=== PATIENT | female | born 1985 | race African-American/Black ===

== ENCOUNTER → 2016-08-08 | Outpatient (REF) | payer BC, MEDICAID ==
[~2016-08-08] MED LIST: ANUS2.5C2 TOP; CIPR500T3 PO; COLA100C PO; IBUP200T2 PO; MOM30SS PO; MOTR200T44 PO; TYLE167L PO
[2016-08-08 13:20] LABS: BASO % 0.4 % (0.0-1.0); EOS # 0.2 K/mm3 (0.0-0.50); EOS % 3.3 % (0.0-3.0); LARGE UNSTAINED CELL # 0.1 K/mm3 (0.0-0.4); LARGE UNSTAINED CELL % 1.7 % (0.0-4.0); LYMPH # 1.7 K/mm3 (1.5-4.5); LYMPH % 21.3 % (24.0-44.0); MEAN CORPUSCULAR HEMOGLOBIN 29.8 pg (27.0-33.0); MEAN CORPUSCULAR HGB CONC 33.3 g/dl (32.0-36.5); MEAN CORPUSCULAR VOLUME 89.5 fl (80.0-96.0); MONO # 0.4 K/mm3 (0.0-0.8); MONO % 5.2 % (0.0-5.0); NEUTROPHILS % 68.2 % (36.0-66.0); PLATELET COUNT, AUTOMATED 279 k/mm3 (150-450); WHITE BLOOD COUNT 7.3 K/mm3 (4.0-10.0)
[2016-08-08 13:45] LABS: ALBUMIN 3.8 GM/DL (3.2-5.2); ALBUMIN/GLOBULIN RATIO 1.06 (1.00-1.93); ALKALINE PHOSPHATASE 60 U/L (45-117); ALT/SGPT 21 U/L (12-78); ANION GAP 8 MEQ/L (8-16); AST/SGOT 15 U/L (15-37); BILIRUBIN,TOTAL 0.5 MG/DL (0.2-1.0); BLOOD UREA NITROGEN 7 MG/DL (7-18); CALCIUM LEVEL 9.2 MG/DL (8.5-10.1); CARBON DIOXIDE LEVEL 25 MEQ/L (21-32); CHLORIDE LEVEL 104 MEQ/L (98-107); CREATININE FOR GFR 0.63 MG/DL (0.55-1.02); FREE T4 0.98 NG/DL (0.76-1.46); GLOMERULAR FILTRATION RATE > 60.0 (>60); GLUCOSE, FASTING 180 MG/DL (70-105); HCG, SERUM QUANTITATIVE 43482 MIU/ML; POTASSIUM SERUM 4.2 MEQ/L (3.5-5.1); SODIUM LEVEL 137 MEQ/L (136-145); TOTAL PROTEIN 7.4 GM/DL (6.4-8.2)
[2016-08-09 11:06] LABS: HBsAg Prenatal NEGATIVE (NEGATIVE)
[2016-08-09 13:57] LABS: HIV SCRN NEGATIVE (NEGATIVE); HIV SCRN1 NEGATIVE (NEGATIVE)
[2016-08-09 13:58] LABS: CONTROL LINE INT CTR LINE PRESENT
== END ==
LOC: M LAB REF 12:21
PROVIDERS: ATTEND Obstetrics & Gynecology
DX: O36.80X0 Pregnancy with inconclusive fetal viability, not applicable or unspecified (principal)

== ENCOUNTER 2016-12-12 23:32 | Outpatient (CLI) | payer MEDICAID, OTHER ==
[~2016-12-12 23:32] MED LIST changes: -COLA100C PO; +COLA100C5 PO
[2016-12-12 23:51] VITALS: BP 122/57
[2016-12-13] MEDS ORDERED: GLYB5TA PO (00:16)
[2016-12-13] MEDS ORDERED: PRENTAB9 PO (00:16)
--- NOTE | 2016-12-23 19:45 | IPNPDOC ---
Text Note Date of Service The patient was seen on 12/13/16. NOTE Subjective: Patient is a who is a 27 year-old female at 27 weeks gestation with an ISADORA of 03/14/17 based off of her LMP and consistent with her 1st trimester ultrasound. She initiated her care at [facility]. Her has been complicated by prediabetes, which she has bee taking Glyberide PO BID to manage. Patient presents to L&D with complaints of contractions. She reports that she gets contractions/pedro sheehan every night after work but tonight they stayed consistent and haven't gone away like they normally do. Patient also reports low dull back pain with contractions and slight pressure. She reports contractions that were every 3 minutes but reports they have decreased in frequency. Reports that the pressure and back pain occur infrequently. Reports active movement. Denies leaking of fluid or vaginal bleeding. Objective: VS: see below Urine dip: SG-1.005, pH 5, and everything else is negative. FHR: 140, moderate variability, positive accelerations, no decelerations. Contractions every 11-17 minutes. Abdomen: gravid Pelvic: speculum exam done. Cervix closed and thick. Normal physiologic discharge noted. Extremities: generalized edema bilateral lower feet and legs. Assessment: IUP at 26 weeks gestation, occasional contractions, not in labor. Plan: Patient to be discharged home with friend. Extensive education done on labor s/sx. Reviewed access to care, movement, danger signs. Patient encouraged to continue to take her blood sugars and to bring them to her routine appointments. Follow up with routine OB care. VS,Fidelbone, I+O VS, Fishbone, I+O Vital Signs Date Time Temp Pulse Resp B/P (MAP) Pulse Ox O2 Delivery O2 Flow Rate FiO2 12/12/16 23:51 98.0 103 18 122/57 (78) LAURA CALZADA CNM Dec 13, 2016 02:44
== END 2016-12-13 01:31 | disposition home or self-care (01) ==
LOC: M LDO 23:32
PROVIDERS: ATTEND Advanced Practice Midwife
DX: O47.02 False labor before 37 completed weeks of gestation, second trimester (principal); Z3A.27 27 weeks gestation of pregnancy; O99.282 Endocrine, nutritional and metabolic diseases complicating pregnancy, second trimester; Z88.1 Allergy status to other antibiotic agents; Z79.899 Other long term (current) drug therapy; O99.810 Abnormal glucose complicating pregnancy

== ENCOUNTER → 2017-01-07 | Outpatient (REF) | payer OTHER ==
[~2017-01-07] MED LIST changes: +GLYB5TA PO; +PRENTAB9 PO
== END ==
LOC: M LAB REF 12:58
PROVIDERS: ATTEND Advanced Practice Midwife
DX: O24.113 Pre-existing type 2 diabetes mellitus, in pregnancy, third trimester (principal)

== ENCOUNTER → 2017-02-18 | Outpatient (REF) | payer OTHER | LOC: M LAB REF 12:34 | PROVIDERS: ATTEND Obstetrics & Gynecology | DX: O09.893 Supervision of other high risk pregnancies, third trimester (principal); Z3A.36 36 weeks gestation of pregnancy ==

== ENCOUNTER 2017-03-08 03:26 | Inpatient (IN) | payer OTHER ==
[2017-03-08] VITALS (24 sets, daily range): BP systolic 98–164; BP diastolic 50–98
[~2017-03-08] VITALS: Ht 170.2 cm; Wt 112.0 kg
[2017-03-08] MEDS ORDERED: LR 1,000 ML IV SCH (03:47)
[2017-03-08] MEDS ORDERED: AMPICILLIN SOD 2 GM in D5W MINI-BAG PLUS 100 ML IV STA (03:47)
[2017-03-08] MEDS ORDERED: LACTATED RINGER'S 1000 ML IV STA (03:47)
[2017-03-08 04:32] LABS: MEAN CORPUSCULAR HEMOGLOBIN 28.2 pg (27.0-33.0); MEAN CORPUSCULAR HGB CONC 32.7 g/dl (32.0-36.5); MEAN CORPUSCULAR VOLUME 86.2 fl (80.0-96.0); RED CELL DISTRIBUTION WIDTH 14.7 % (11.5-14.5)
[2017-03-08] MEDS ORDERED: FENTANYL 2MCG/ML ROPIVACAINE 0.2% IN 0.9% NACL 200ML IVBAG As Ordered ONE (05:00)
[2017-03-08] MEDS ORDERED: OXYTOCIN 30 UNITS IN 0.9% NaCl 500ML IV BAG (J2590) As Ordered ONE (07:20)
[2017-03-08] MEDS ORDERED: OXYTOCIN DRIP 30 UNITS in APPROPRIATE DILUENT 1 EA IV SCH ×2 (07:30→07:53)
[2017-03-08] MEDS ORDERED: RHOGAM 300 MCG (1500 IU) INJ (J2790) IM SCH (08:00)
[2017-03-08] MEDS ORDERED: MEASLES,MUMPS,RUBELLA VACCINE INJ (MMR-II) (90707) SC SCH (08:00)
[2017-03-08] MEDS ORDERED: ACETAMINOPHEN 500 MG TAB PO PRN (08:00)
[2017-03-08] MEDS ORDERED: DOCUSATE SODIUM 100 MG CAP PO PRN (08:00)
[2017-03-08] MEDS ORDERED: METHYLERGONOVINE MALEATE 0.2 MG TAB PO PRN (08:00)
[2017-03-08] MEDS ORDERED: DIBUCAINE 1% OINTMENT 30GM TOP PRN (08:00)
[2017-03-08] MEDS ORDERED: ANUSOL HC CREAM 30GM TOP PRN (08:00)
[2017-03-08] MEDS ORDERED: IBUPROFEN 800 MG TAB PO PRN (08:00)
[2017-03-08 08:10] LABS: CORD GAS ABE V -4.7; CORD GAS HCO3 V 21.6 MEQ/L; CORD GAS O2 SAT V 50.5 %; CORD GAS PH V 7.309 UNITS; CORD GAS PO2 V 21.7 mmHg; CORD GAS SBC V 19.4 MEQ/L
--- NOTE | 2017-03-08 08:11 | HPE ---
DATE OF ADMISSION: 03/08/2017 Britney is a 31-year-old female, 7, para 3-0-3-3 with an estimated date of confinement (EDC) of 03/14/2017. Estimated gestational age (EGA) 38-6/7 weeks' gestation, who presented to labor and delivery with complaints of contractions. Upon evaluation, she was found to be in active labor. Decision was then made for admission. She does have a history of diabetes, currently on glyburide. Her last ultrasound was done a few days ago; shows an estimated weight of 9 pounds 1 ounce. The baby is in the 94th percentile for weight. Her amniotic fluid index (PRANEETH) was 23.4. The rest of her records reviewed, which was essentially unremarkable. Blood type is O+, rubella immune, hepatitis negative, HIV negative, gonorrhea culture (GC) and chlamydia negative. Her thyroid was within normal limits. Hepatitis C negative. Group B streptococcus (GBS) positive. Hemoglobin A1c was 7.9. Her last repeated one was done on 01/07/2017, which was 6.5. PAST MEDICAL HISTORY: Significant for diabetes. PAST SURGICAL HISTORY: Denies. SOCIAL HISTORY: She is . Denies any alcohol, drugs, or cigarette smoking. However, she is a former smoker. MEDICATIONS: - vitamin - glyburide ALLERGIES: To CIPRO. PHYSICAL EXAMINATION: HEENT: Grossly within normal limits. Abdomen: Soft, nontender, nondistended. Vaginal examination done by registered nurse (RN): 7 cm, 100%, fetus at -3 station. Tracing reviewed. Category one tracing with contractions every 4-5 minutes. ASSESSMENT: 1. Intrauterine at 38-6/7 weeks' gestation, in active labor. 2. Group B streptococcus positive. 3. Type 2 diabetes, on glyburide. PLAN: Admit to labor and delivery. Routine laboratories sent. Pain management discussed. The patient opts for an epidural. Ampicillin started for GBS. Risks of possible shoulder dystocia discussed, especially in light of the diabetes and the fact that the estimated weight as of 03/05/2017 was 9 pounds 1 ounce. The patient fully understands. Will proceed with attempted vaginal delivery. [facility]
[2017-03-08 08:12] LABS: CORD GAS HCO3 A 24.3 MEQ/L; CORD GAS O2 SAT A 15.3 %; CORD GAS PCO2 A 62.6 mmHg; CORD GAS PH A 7.206 UNITS; CORD GAS PO2 A 10.6 mmHg; CORD GAS SBC A 18.4 MEQ/L; CORD GAS TCO2 A 26.2 MEQ/L
[2017-03-08] MEDS ORDERED: AMPICILLIN SOD 1 GM in D5W 50 ML IV SCH (08:30)
--- NOTE | 2017-03-08 08:31 | DN ---
DATE OF DELIVERY: 03/08/2017 Britney is a 31-year-old female, 7, para 3-0-3-3, who was admitted at 39+ weeks' gestation in active labor. She progressed to fully dilated after artificial rupture of membranes and delivered a live male in left occipitoanterior position over an intact perineum. scores 8 and 9. weight 9 pounds 14 ounces. Placenta delivered spontaneously intact. Three-vessel cord. Perineum, vagina, cervix inspected. No laceration noted. Cord blood and cord gas were sent. Both mother and baby in stable condition.
[2017-03-08] MEDS: PRENATAL VITAMINS CHEWABLE TABLET PO SCH (09:00)
[2017-03-09 05:20] VITALS: BP 113/80
[2017-03-09 06:52] LABS: MEAN CORPUSCULAR HEMOGLOBIN 27.8 pg (27.0-33.0); MEAN CORPUSCULAR HGB CONC 32.1 g/dl (32.0-36.5); MEAN CORPUSCULAR VOLUME 86.5 fl (80.0-96.0); RED CELL DISTRIBUTION WIDTH 14.7 % (11.5-14.5); WHITE BLOOD COUNT 10.2 10^3/uL (4.0-10.0)
[2017-03-09 07:16] LABS: ANION GAP 6 MEQ/L (8-16); BLOOD UREA NITROGEN 6 MG/DL (7-18); CALCIUM LEVEL 8.6 MG/DL (8.5-10.1); CARBON DIOXIDE LEVEL 27 MEQ/L (21-32); CHLORIDE LEVEL 105 MEQ/L (98-107); GLOMERULAR FILTRATION RATE > 60.0 (>60); GLUCOSE, FASTING 116 MG/DL (70-105); POTASSIUM SERUM 3.8 MEQ/L (3.5-5.1); SODIUM LEVEL 138 MEQ/L (136-145)
[2017-03-09] MEDS: PRENATAL VITAMINS CHEWABLE TABLET PO SCH (08:46)
[2017-03-09 18:00] VITALS: BP 120/72
[2017-03-10 05:56] VITALS: BP 116/66
[2017-03-10] MEDS: PRENATAL VITAMINS CHEWABLE TABLET PO SCH (09:59)
== END 2017-03-10 16:05 | disposition home or self-care (01) | DRG 560 ==
LOC: M LDO 03:26 → M LDI 03:42 → M OBS 11:20
PROVIDERS: ADMIT Obstetrics & Gynecology; ATTEND Obstetrics & Gynecology
PROC: 10E0XZZ Delivery of Products of Conception, External Approach (ICD-10-PCS; principal; 2017-03-08)
PROC: 10907ZC Drainage of Amniotic Fluid, Therapeutic from Products of Conception, Via Natural or Artificial Opening (ICD-10-PCS; 2017-03-08)
DX: O24.12 Pre-existing type 2 diabetes mellitus, in childbirth (principal); Z37.0 Single live birth; Z3A.38 38 weeks gestation of pregnancy; E11.9 Type 2 diabetes mellitus without complications; O69.82X0 Labor and delivery complicated by other cord entanglement, without compression, not applicable or unspecified; Z88.8 Allergy status to other drugs, medicaments and biological substances; Z87.891 Personal history of nicotine dependence

== ENCOUNTER 2018-10-31 10:13 | Emergency (ER) | payer OTHER ==
[~2018-10-31] VITALS: Ht 170.2 cm; Wt 110.0 kg
[2018-10-31 10:14] VITALS: BP 133/78
[2018-10-31] MEDS ORDERED: CLAR10CA3 PO (11:03)
--- NOTE | 2018-10-31 11:07 | REP ---
Clinical: Trauma. Technique: AP, lateral, bilateral oblique views of the right foot. Findings: There is a nondisplaced fracture involving the third toe proximal phalanx. Remainder examination is normal. Impression: Nondisplaced fracture involving the third toe proximal phalanx. Electronically Signed by Ralph Ngo MD 10/31/2018 10:58 A
== END 2018-10-31 11:22 | disposition home or self-care (01) ==
LOC: M ED 10:13
DX: S92.514A Nondisplaced fracture of proximal phalanx of right lesser toe(s), initial encounter for closed fracture (principal); S39.012A Strain of muscle, fascia and tendon of lower back, initial encounter; W19.XXXA Unspecified fall, initial encounter; Y92.098 Other place in other non-institutional residence as the place of occurrence of the external cause; E11.43 Type 2 diabetes mellitus with diabetic autonomic (poly)neuropathy; R51 Headache; Z88.1 Allergy status to other antibiotic agents; Z79.899 Other long term (current) drug therapy

== ENCOUNTER 2019-01-07 10:46 | Emergency (ER) | payer OTHER ==
[~2019-01-07] VITALS: Ht 170.2 cm; Wt 107.0 kg
[~2019-01-07 10:46] MED LIST changes: +CLAR10CA3 PO
[2019-01-07 10:47] VITALS: BP 128/63
[2019-01-07] MEDS ORDERED: NAPR-837 PO (11:16)
[2019-01-07] MEDS ORDERED: CYCL10TA PO (11:16)
== END 2019-01-07 11:30 | disposition home or self-care (01) ==
LOC: M ED 10:46
DX: M43.6 Torticollis (principal); J30.89 Other allergic rhinitis; Z79.899 Other long term (current) drug therapy; Z88.1 Allergy status to other antibiotic agents

== ENCOUNTER 2021-03-15 11:28 | Outpatient (CLI) | payer OTHER ==
[~2021-03-15] VITALS: Ht 170.2 cm; Wt 109.0 kg
[~2021-03-15 11:28] MED LIST changes: +CYCL-707 PO; -GLYB5TA PO; +GLYB5TAB6 PO; +NAPR-837 PO
[2021-03-15 11:54] VITALS: BP 143/89
[2021-03-15] MEDS ORDERED: LANTINJ4 SC (11:59)
[2021-03-15] MEDS ORDERED: MULTTAB20 PO (11:59)
[2021-03-15] MEDS ORDERED: INSUHUMDS SC (12:00)
[2021-03-15] MEDS ORDERED: IRON27TA2 PO (12:01)
[2021-03-15] MEDS ORDERED: VITA200012 PO (12:01)
[2021-03-15] MEDS ORDERED: HOME MED LIST COMPLETE! XX SCH (12:05)
--- NOTE | 2021-03-15 14:14 | REP ---
INDICATION: 28 weeks, anencephaly COMPARISON: None. TECHNIQUE: Transabdominal obstetrical ultrasound with color Doppler evaluation. FINDINGS: Examination demonstrates a single live intrauterine in cephalic presentation. motion is identified by technologist. Placenta is noted posterior and grade 1 without evidence for placenta previa or abruption. Amniotic fluid volume is normal. Cervix measures 4.0 cm in length and appears closed.. Selected gestational age: 28 weeks 6 days with ISADORA 06/01/2021. Gestational age by current measurements 29 weeks 2 days with ISADORA 05/29/2021. FHR equals 147 beats per minute. Estimated weight 1808 grams (greater than 97thpercentile). PRANEETH: 20.0 cm (9.2-23.1) Umbilical artery SD ratio: 3.80 (2.04-4.23) Anatomical assessment demonstrates a large complex appearing encephalocele along the posterior skull base. IMPRESSION: Single live intrauterine demonstrating greater than expected interval growth. Large and encephalocele at the posterior skull base. <Electronically signed by Ralph Ngo > 03/15/21 1009
[2021-03-15 14:27] VITALS: BP 99/58
--- NOTE | 2021-03-15 14:33 | IPNPDOC ---
Text Note Date of Service The patient was seen on 03/15/21. NOTE Progress note S: 35 yo at 28 3/7 weeks gestation presents with lower abdominal cramping. She fell yesterday, hitting her side. care has been in [place]. At 20 weeks she was diagnosed with a encephalocele. Pt has Type II diabetes on insulin. No care since leaving [place]. O: AVSS NAD Abd: NT, gravid FHT: Cat I [place]: irregular, mild ext: NT A/P 35 yo at 28 3/7 weeks with reassuring testing. encephalocele present. Pt stable for discharge Pt has appointment in our office on 03/27/2021 Will refer to [facility] in [place] due to Encephalocele. VS,Fishbone, I+O VS, Fishbone, I+O Vital Signs Date Time Temp Pulse Resp B/P (MAP) Pulse Ox O2 Delivery O2 Flow Rate FiO2 03/15/21 11:54 97.5 117 20 143/89 (107) BRADY HYDE MD Mar 15, 2021 14:33
== END 2021-03-15 14:40 | disposition home or self-care (01) ==
LOC: M LDO 11:28
PROVIDERS: ATTEND Specialist
DX: O9A.213 Injury, poisoning and certain other consequences of external causes complicating pregnancy, third trimester (principal); Z3A.28 28 weeks gestation of pregnancy; S30.1XXA Contusion of abdominal wall, initial encounter; W01.0XXA Fall on same level from slipping, tripping and stumbling without subsequent striking against object, initial encounter; Y92.9 Unspecified place or not applicable; O35.0XX0 Maternal care for (suspected) central nervous system malformation in fetus, not applicable or unspecified; O24.113 Pre-existing type 2 diabetes mellitus, in pregnancy, third trimester; Z79.4 Long term (current) use of insulin; Z88.1 Allergy status to other antibiotic agents

== ENCOUNTER 2021-05-05 08:10 | Outpatient (CLI) | payer MEDICAID, OTHER ==
[~2021-05-05] VITALS: Ht 170.2 cm; Wt 110.8 kg
[~2021-05-05 08:10] MED LIST changes: +INSUHUMDS SC; +IRON27TA2 PO; +LANTINJ4 SC; +MULTTAB20 PO; +VITA200012 PO
[2021-05-05] MEDS ORDERED: INSUHUMDS SC (08:37)
[2021-05-05] MEDS ORDERED: LANTINJ4 SC (08:37)
[2021-05-05 08:40] VITALS: BP 149/83
[2021-05-05 10:50] VITALS: BP 116/72
[2021-05-05] MEDS ORDERED: LR 1,000 ML IV SCH (11:00)
[2021-05-05] MEDS ORDERED: LACTATED RINGER'S 1000 ML IV STA (11:00)
[2021-05-05 11:15] LABS: HEMATOCRIT 33.7 % (36.0-47.0); HEMOGLOBIN 11.2 g/dl (12.0-15.5); MEAN CORPUSCULAR HGB CONC 33.2 g/dl (32.0-36.5); MEAN CORPUSCULAR VOLUME 84.3 fl (80.0-96.0); PLATELET COUNT, AUTOMATED 242 10^3/uL (150-450)
[2021-05-05] MEDS ORDERED: PROMETHAZINE INJ 25 MG/ML VIAL (J2550) IV ONE (11:15)
[2021-05-05] MEDS ORDERED: ACETAMINOPHEN 500 MG TAB PO PRN (12:50)
[2021-05-05 12:55] LABS: APPEARANCE, URINE CLEAR (CLEAR); BACTERIA, URINE AUTO 1+ (NEGATIVE); BILIRUBIN, URINE AUTO NEGATIVE (NEGATIVE); BLOOD, URINE BLOOD NEGATIVE (NEGATIVE); COLOR, URINE YELLOW (YELLOW); GLUCOSE, URINE (UA) AUTO NEGATIVE (NEGATIVE); KETONE, URINE AUTO 1+ mg/dL (NEGATIVE); LEUKOCYTE ESTERASE, URINE AUTO NEGATIVE (NEGATIVE); MUCUS, URINE SMALL (NEGATIVE); NITRITE, URINE AUTO NEGATIVE (NEGATIVE); PROTEIN, URINE AUTO NEGATIVE (NEGATIVE); RBC, URINE AUTO 0 /HPF (0-3); SPECIFIC GRAVITY URINE AUTO 1.005 (1.002-1.035); SQUAMOUS EPITHELIAL CELL UR AU 2 /HPF (0-6); UROBILINOGEN, URINE AUTO 0.2 mg/dL (0.0-2.0); WBC, URINE AUTO 2 /HPF (0-3)
== END 2021-05-05 14:06 | disposition home or self-care (01) ==
LOC: M LDO 08:10
PROVIDERS: ATTEND Obstetrics & Gynecology
DX: O60.03 Preterm labor without delivery, third trimester (principal); O26.893 Other specified pregnancy related conditions, third trimester; O35.1XX0 Maternal care for (suspected) chromosomal abnormality in fetus, not applicable or unspecified; R10.2 Pelvic and perineal pain; Q01.9 Encephalocele, unspecified; Z3A.35 35 weeks gestation of pregnancy

== ENCOUNTER 2021-05-14 05:12 | Inpatient (IN) | payer OTHER ==
[~2021-05-14] VITALS: Ht 170.2 cm; Wt 109.0 kg
[2021-05-14] VITALS (7 sets, daily range): BP systolic 109–149; BP diastolic 59–100
--- OUTSIDE RECORDS SUMMARY | 2021-05-14 05:17 | CCD ---
Author Author [facility] Organization [facility] Address Unknown Phone Unavailable Care Team Providers Care Bridge Repair Crew Person Name Role Phone ArmasDawson lombardo Unavailable PROBLEMS Type Condition ICD9-CM Code [id number] Code Onset Dates Condition S tatus W/U Status Risk SNOMED Code Notes Problem Supervision of other normal Z34.80 Ac tive confirm [id number] Problem Pre-existing diabetes mellitus during in third trimester O24.313 Active confirmed [id number] ALLERGIES Allergen (clinical drug ingredient) Drug/Non Drug Allergy do cumented on EMR Reaction Allergy Type Onset Date Status ciprofloxacin Cipro([facility] Code:[address]-28) Rash Drug Allergy Active ENCOUNTERS from 1986 to 2021-04-20 Encounter Location Date Provider Diagnosis [facility] [address] [place] [address] [place] [address] Apr, Dawson Armas IMMUNIZATIONS No Information SOCIAL HISTORY Tobacco Use: Social History Observation Description Date Details (start date - stop date) Never Smoker Sex Assigned At : Social History Observation Description Sex Assigned At Unknown Domestic Violence: Question Answer Notes Status: No history of abuse Alcohol Screening: Question Answer Notes Did you have a drink containing alcohol in the past year? No Points 0 Interpretation Negative Tobacco Use: Question Answer Notes Are you a: never smoker REASON FOR REFERRAL No Information VITAL SIGNS No information MEDICATIONS Medication SIG (Take, Route, Frequency, Duration) Notes Start Da te End Date Status 27-1 MG 1 tablet Orally Once a day Active Alcohol Wipes 70 % as directed O24.419 topically four times apolonia y for 30 Days Apr, Active Lancets - as directed O24.419 four times daily for 30 Days Apr, Active Vitamin D 50 MCG (2000 UT) 1 capsule Orally Once a day Active Vitamin C 500 MG as directed Orally Active Glucose Monitor - as directed O24.419 four times daily for 30 Da ys Apr, Active Lantus 100 UNIT/ML as directed Subcutaneous 35 Units Once Daily Active Iron 325 (65 Fe) MG 1 tablet Orally Once a day Active HumaLOG KwikPen 100 UNIT/ML as directed Subcutaneous 6 mL Three Times a Day Active Test Strips - as directed O24.419 four times daily for 30 Days Apr, Active PROCEDURES No Information RESULTS No Results REASON FOR VISIT R/S APPT AND TALK TO NURSE/DOCTOR MEDICAL (GENERAL) HISTORY Type Description Date Medical History diabetes malitus - Insulin Dependant Medical History anemia Surgical History cholecystectomy 05/2019 Hospitalization History childbirth Hospitalization History surgery Goals Section No Information Health Concerns No Information MEDICAL EQUIPMENT No Information MENTAL STATUS No Information FUNCTIONAL STATUS No Information ASSESSMENTS No Information PLAN OF TREATMENT Next Appt Details Provider Name:Dawson Armas, 11:40:00 AM, [address] [facility], , [place], [address],
--- OUTSIDE RECORDS SUMMARY | 2021-05-14 05:17 | CCD ---
Author Author [facility] Organization [facility] Address Unknown Phone Unavailable Care Team Providers Care Process Safety Specialist Name Role Phone Yamilka Dumas Unavailable PROBLEMS Type Condition ICD9-CM Code [id number] Code Onset Dates Condition S tatus W/U Status Risk SNOMED Code Notes Problem Supervision of other normal Z34.80 Ac tive confirm [id number] Problem Pre-existing diabetes mellitus during in third trimester O24.313 Active confirmed [id number] ALLERGIES Allergen (clinical drug ingredient) Drug/Non Drug Allergy do cumented on EMR Reaction Allergy Type Onset Date Status ciprofloxacin Cipro([facility] Code:[address]-81) Rash Drug Allergy Active ENCOUNTERS from 1986 to 2021-05-07 Encounter Location Date Provider Diagnosis [facility] [address] [place] [address] [place] [address] Apr, Yamilka Dumas IMMUNIZATIONS No Information SOCIAL HISTORY Tobacco Use: [...] Information RESULTS No Results REASON FOR VISIT No Information MEDICAL (GENERAL) HISTORY Type Description Date Medical History diabetes malitus - Insulin Dependant Medical History anemia Surgical History cholecystectomy 05/2019 Hospitalization History childbirth Hospitalization History surgery Goals Section No Information Health Concerns No Information MEDICAL EQUIPMENT No Information MENTAL STATUS No Information FUNCTIONAL STATUS No Information ASSESSMENTS No Information PLAN OF TREATMENT No Information
--- OUTSIDE RECORDS SUMMARY | 2021-05-14 05:17 | CCD ---
Author Author [facility] Organization [facility] Address Unknown Phone Unavailable Care Team Providers Care Client Insights Consultant Name Role Phone ArmasDawson lombardo Unavailable PROBLEMS Type Condition ICD9-CM Code GHB24-OH Code Onset Dates Condition S tatus W/U Status Risk SNOMED Code Notes Problem Supervision of other normal Z34.80 Ac tive confirm [id number] Problem Pre-existing diabetes mellitus during in third trimester O24.313 Active confirmed [id number] ALLERGIES Allergen (clinical drug ingredient) Drug/Non Drug Allergy do cumented on EMR Reaction Allergy Type Onset Date Status ciprofloxacin Cipro([facility] Code:[address]-93) Rash Drug Allergy Active ENCOUNTERS from 1986 to 2021-04-23 Encounter Location Date Provider Diagnosis [facility] [address] [place] [address] [place] [address] Apr, Dawson Armas IMMUNIZATIONS No Information SOCIAL [...] Details Provider Name:Dawson Armas, 11:40:00 AM, [address] [facility], , [place], [address],
--- OUTSIDE RECORDS SUMMARY | 2021-05-14 05:17 | CCD ---
Author Author [facility] Organization [facility] Address Unknown Phone Unavailable Care Team Providers Care Frame Straightener Name Role Phone Dawson Armas Unavailable PROBLEMS Type Condition ICD9-CM Code IKL95-SB Code Onset Dates Condition S tatus W/U Status Risk SNOMED Code Notes Problem Supervision of other normal Z34.80 Ac tive confirm [id number] Problem Pre-existing diabetes mellitus during in third trimester O24.313 Active confirmed 95102096 ALLERGIES Allergen (clinical drug ingredient) Drug/Non Drug Allergy do cumented on EMR Reaction Allergy Type Onset Date Status ciprofloxacin Cipro([facility] Code:[address]-04) Rash Drug Allergy Active ENCOUNTERS from 1986 to 2021-05-11 Encounter Location Date Provider Diagnosis [facility] [address] [facility] [phone] [place] [address] May, Dawson Armas Pre-existing diabete s mellitus during in third trimester O24.313 ; Encephalocele of fetus affecting antepartum care of mother, single or unspecified fetus O35.0XX0 and 36 weeks gestation of Z3A.36 IMMUNIZATIONS No Information SOCIAL HISTORY Tobacco Use: [...] REASON FOR REFERRAL No Information VITAL SIGNS Weight 243 lbs May, Weight-kg 110.22 kg May, Height 67 in May, BMI 38.059 kg/m2 May, Blood pressure systolic 104 mm Hg May, Blood pressure diastolic 68 mm Hg May, MEDICATIONS Medication SIG (Take, Route, Frequency, Duration) Notes Start Da te End Date Status Vitamin C 500 MG as directed Orally Unknown Lancets - as directed O24.419 four times daily for 30 Days Apr, Unknown Alcohol Wipes 70 % as directed O24.419 topically four times apolonia y for 30 Days Apr, Unknown Lantus 100 UNIT/ML as directed Subcutaneous 35 Units Once Daily Unknown HumaLOG KwikPen 100 UNIT/ML as directed Subcutaneous 6 mL Three Times a Day Unknown Glucose Monitor - as directed O24.419 four times daily for 30 Da ys Apr, Unknown 27-1 MG 1 tablet Orally Once a day Unknown Vitamin D 50 MCG (2000 UT) 1 capsule Orally Once a day Unknown Iron 325 (65 Fe) MG 1 tablet Orally Once a day Unknown Test Strips - as directed O24.419 four times daily for 30 Days Apr, Unknown PROCEDURES No Information RESULTS No Results REASON FOR VISIT 1 wk PN MEDICAL (GENERAL) HISTORY Type Description Date Medical History diabetes malitus - Insulin Dependant Medical History anemia Surgical History cholecystectomy 05/2019 Hospitalization History childbirth Hospitalization History surgery Goals Section No Information Health Concerns No Information MEDICAL EQUIPMENT No Information MENTAL STATUS No Information FUNCTIONAL STATUS No Information ASSESSMENTS Encounter Date Diagnosis Assessment Notes Treatment Notes Treatm ent Clinical Notes May, Pre-existing diabetes mellit us during in third trimester (ICD-10 - O24.313) May, Encephalocele of fetus affec ting antepartum care of mother, single or unspecified fetus (ICD-10 - O35.0XX0) May, 36 weeks gestation of (ICD-10 - Z3A.36 ) PLAN OF TREATMENT Next Appt Details Provider Name:Dawson Armas, 07:30:00 AM, [address] [place] [address], , [place], [address], Provider Name:Perlita Baxter, 2021-05-14 07:30:00 AM, [address] [place] [address], , [place], [address], Provider Name:Dawson Armas, 08:20:00 AM, [facility] [facility], , [place], [address], Provider Name:Dawson Armas, 10:20:00 AM, [address] [facility], , [place], [address],
--- OUTSIDE RECORDS SUMMARY | 2021-05-14 05:17 | CCD ---
Author Author [facility] Organization [facility] Address Unknown Phone Unavailable Care Team Providers Care Health Plan Specialist Name Role Phone ArmasDawson lombardo Unavailable PROBLEMS Type Condition ICD9-CM Code LYP93-EJ Code Onset Dates Condition S tatus W/U Status Risk SNOMED Code Notes Problem Supervision of other normal Z34.80 Ac tive confirm [id number] Problem Pre-existing diabetes mellitus during in third trimester O24.313 Active confirmed 31770978 ALLERGIES Allergen (clinical drug ingredient) Drug/Non Drug Allergy do cumented on EMR Reaction Allergy Type Onset Date Status ciprofloxacin Cipro([facility] Code:[address]-95) Rash Drug Allergy Active ENCOUNTERS from 1986 to 2021-05-11 Encounter Location Date Provider Diagnosis [facility] [address] [facility] [phone] [place] [address] May, Dawson Armas IMMUNIZATIONS No Information SOCIAL HISTORY [...] Information RESULTS No Results REASON FOR VISIT OUT OF WORK NOTE MEDICAL (GENERAL) HISTORY Type Description Date Medical History diabetes malitus - Insulin Dependant Medical History anemia Surgical History cholecystectomy 05/2019 Hospitalization History childbirth Hospitalization History surgery Goals Section No Information Health Concerns No Information MEDICAL EQUIPMENT No Information MENTAL STATUS No Information FUNCTIONAL STATUS No Information ASSESSMENTS No Information PLAN OF TREATMENT Next Appt Details Provider Name:Dawson Armas, 07:30:00 AM, [address] [place] [address], [place], [place], [address] [place] [address], Provider Name:Perlita Baxter, 2021-05-14 07:30:00 AM, [address] [place] [address], [place], [address], Provider Name:Dawson Armas, 08:20:00 AM, [address] [place] [address], [place], [address], Provider Name:Dawson Armas, 10:20:00 AM, [address] [place] [address], [place], [address],
--- OUTSIDE RECORDS SUMMARY | 2021-05-14 05:18 | CCD ---
Author Author [facility] Organization [facility] Address Unknown Phone Unavailable Care Team Providers Care Housekeeping Worker Name Role Phone Yamilka Dumas Unavailable PROBLEMS Type Condition ICD9-CM Code MPY96-AW Code Onset Dates Condition S tatus W/U Status Risk SNOMED Code Notes Problem Supervision of other normal Z34.80 Ac tive confirm [id number] ALLERGIES Allergen (clinical drug ingredient) Drug/Non Drug Allergy do cumented on EMR Reaction Allergy Type Onset Date Status ciprofloxacin Cipro([facility] Code:[address]-41) Rash Drug Allergy Active ENCOUNTERS from 1986 to 2021-04-02 Encounter Location Date Provider Diagnosis [facility] [address] [place] [address] [place] [address] Mar, Yamilka Dumas IMMUNIZATIONS No Information SOCIAL HISTORY Tobacco Use: Social History Observation Description Date Details (start date - stop date) Never Smoker Sex Assigned At : Social History Observation Description Sex Assigned At Unknown Domestic Violence: Question Answer Notes Status: No history of abuse Tobacco Use: Question Answer Notes Are you a: never smoker REASON FOR REFERRAL No Information VITAL SIGNS No information MEDICATIONS Medication SIG (Take, Route, Frequency, Duration) Notes Start Da te End Date Status Vitamin D 50 MCG (1999 UT) 1 capsule Orally Once a day Active HumaLOG KwikPen 100 UNIT/ML as directed Subcutaneous 6 mL Three Times a Day Active Iron 325 (65 Fe) MG 1 tablet Orally Once a day Active Vitamin C 500 MG as directed Orally Active Lantus 100 UNIT/ML as directed Subcutaneous 35 Units Once Daily Active 27-1 MG 1 tablet Orally Once a day Active PROCEDURES No Information RESULTS No Results REASON FOR VISIT Records MEDICAL (GENERAL) HISTORY Type Description Date Medical History diabetes malitus - Insulin Dependant Medical History anemia Surgical History cholecystectomy 05/2019 Hospitalization History childbirth Hospitalization History surgery Goals Section No Information Health Concerns No Information MEDICAL EQUIPMENT No Information MENTAL STATUS No Information FUNCTIONAL STATUS No Information ASSESSMENTS No Information PLAN OF TREATMENT Next Appt Details Provider Name:Yamilka Javed JosuéSilvia, 1-11-0 3 11:40:00 AM, [address] [facility], , [place], [address],
--- OUTSIDE RECORDS SUMMARY | 2021-05-14 05:18 | CCD ---
Author Author [facility] Organization [facility] Address Unknown Phone Unavailable Care Team Providers Care Uptwister Tender Name Role Phone Yamilka Dumas Unavailable PROBLEMS Type Condition ICD9-CM Code OYF75-RD Code Onset Dates Condition S tatus W/U Status Risk SNOMED Code Notes Problem Supervision of other normal Z34.80 Ac tive confirm [id number] ALLERGIES Allergen (clinical drug ingredient) Drug/Non Drug Allergy do cumented on EMR Reaction Allergy Type Onset Date Status ciprofloxacin Cipro([facility] Code:[address]-95) Rash Drug Allergy Active ENCOUNTERS from 1986 to 2021-03-30 Encounter Location Date Provider Diagnosis [facility] [address] [place] [address] [place] [address] Mar, Yamilka Dumas IMMUNIZATIONS No Information SOCIAL [...] OF TREATMENT Next Appt Details Provider Name:Yamilka Dumas, 2020-11-0 3 11:40:00 AM, [address] [facility], , [place], [address],
--- OUTSIDE RECORDS SUMMARY | 2021-05-14 05:18 | CCD ---
Author Author [facility] Organization [facility] Address Unknown Phone Unavailable Care Team Providers Care Leather Lacer Name Role Phone Mastgregianaustin, S Lianne Unavailable [phone] Mastrogiannis, S Lianne Unavailable [phone] Mastrogiannis, S Lianne Unavailable [phone] Mastrogiannis, S Lianne Unavailable [phone] Mastrogiannis, S Lianne Unavailable [phone] Mastrogiannis, S Lianne Unavailable [phone] Mastrogiannis, S Lianne Unavailable [phone] Mastrogiannis, S Lianne Unavailable [phone] Mastrogiannis, S Lianne Unavailable [phone] RIMA VENEGAS Unavailable Unavailable MASTROGIANNIS, S LIANNE Unavailable Unavailable RACHELLE MONTANEZ Unavailable Unavailable NOSOVIStuart GONCALVES JR, MD Unavailable Unavailable NOSOVIStuart GONCALVES JR, MD Unavailable Unavailable NOSOVIStuart GONCALVES JR, MD Unavailable Unavailable NOSOVIStuart GONCALVES JR, MD Unavailable Unavailable NOSOVIStuart GONCALVES JR, MD Unavailable Unavailable NOSOVIStuart GONCALVES JR, MD Unavailable Unavailable NOSOVIStuart GONCALVES JR, MD Unavailable Unavailable NOSOVIStuart GONCALVES JR, MD Unavailable Unavailable NOSOVIStuart GONCALVES JR, MD Unavailable Unavailable NOSOVIStuart GONCALVES JR, MD Unavailable Unavailable NOSOVIStuart GONCALVES JR, MD Unavailable Unavailable NOSOVIStuart GONCALVES JR, MD Unavailable Unavailable NOSOVIStuart GONCALVES JR, MD Unavailable Unavailable NOSOVIStuart GONCALVES JR, MD Unavailable Unavailable NOSOVIStuart GONCALVES JR, MD Unavailable Unavailable NOSOVIStuart GONCALVES JR, MD Unavailable Unavailable NOSOVIStuart GONCALVES JR, MD Unavailable Unavailable NOSOVIStuart GONCALVES JR, MD Unavailable Unavailable NOSOVIStuart GONCALVES JR, MD Unavailable Unavailable NOSOVIStuart GONCALVES JR, MD Unavailable Unavailable NOSOVIStuart GONCALVES JR, MD Unavailable Unavailable NOSOVIStuart GONCALVES JR, MD Unavailable Unavailable NOSOVIStuart GONCALVES JR, MD Unavailable Unavailable NOSOVIStuart GONCALVES JR, MD Unavailable Unavailable NOSOVIStuart GONCALVES JR, MD Unavailable Unavailable NOSOVIStuart GONCALVES JR, MD Unavailable Unavailable NOSOVIStuart GONCALVES JR, MD Unavailable Unavailable NOSOVIStuart GONCALVES JR, MD Unavailable Unavailable NOSOVIStuart GONCALVES JR, MD Unavailable Unavailable NOSOVIStuart GONCALVES JR, MD Unavailable Unavailable NOSOVIStuart GONCALVES JR, MD Unavailable Unavailable Re-disclosure Warning The records that you are about to access may contain information from federally-assisted alcohol or drug abuse programs. If such information is present, then the following federally mandated warning applies: This information has been disclosed to you from records protected by federal confidentiality rules (42 CFR part 2). The federal rules prohibit you from making any further disclosure of this information unless further disclosure is expressly permitted by the written consent of the person to whom it pertains or as otherwise permitted by 42 CFR part 2. A general authorization for the release of medical or other information is NOT sufficient for this purpose. The Federal rules restrict any use of the information to criminally investigate or prosecute any alcohol or drug abuse patient.The records that you are about to access may contain highly sensitive health information, the redisclosure of which is protected by Article 27-F of the [facility] Public Health law. If you continue you may have access to information: Regarding HIV / AIDS; Provided by facilities licensed or operated by the [facility] Office of Mental Health; or Provided by the [facility] Office for People With Developmental Disabilities. If such information is present, then the following [facility] mandated warning applies: This information has been disclosed to you from confidential records which are protected by state law. State law prohibits you from making any further disclosure of this information without the specific written consent of the person to whom it pertains, or as otherwise permitted by law. Any unauthorized further disclosure in violation of state law may result in a fine or assisted sentence or both. A general authorization for the release of medical or other information is NOT sufficient authorization for further disc losure. Allergies and Adverse Reactions Type Description Substance Reaction Status Data Source(s ) Drug allergy CIPROFLOXACIN HCL CIPROFLOXACIN HCL Encounters Encounter Providers Location Date Indications Data Source(s ) Unknown [address] [facility], [facility] [address] 05/11/2021 12:00:00 AM [facility] eCW1 ([facility]) Outpatient 05/10/2021 12:00:00 AM [facility] Outpatient 05/10/2021 12:00:00 AM [facility] ([facility]) WCenter Complicated OB [address] [place] [address] 05/09/2021 12:00:00 AM EST [facility] ([facility] Outpatient Attender: LIANNE JAY ANNISAttender: Lianne CamachoiannisReferrer: RACHELLE MONTANEZ 05/09/2021 12:00:00 AM [facility] Outpatient Referrer: RACHELLE MONTANEZ 05/09/2021 12:00:00 AM [facility] Outpatient Attender: BRADY TRIMBLE JRReferrer: RACHELLE FLORES [id number] 04/26/2021 12:00:00 AM EST - 04/26/2021 11:41:50 AM [facility] Outpatient Attender: RIMA VENEGASReferrer: RACHELLE MONTANEZ 04/26/2021 12:00:00 AM [facility] [place] [address] [facility] [address] 04/26/2021 12:00:00 AM EST eCW1 ([facility]) ([facility]) WCenter Complicated OB for MD Only [address] [place] [address] 04/19/2021 12:00:00 AM EST eCW1 ([facility]) [place] [address] [facility] [address] 04/17/2021 12:00:00 AM EST eCW1 ([facility]) [place] [address] [facility] [address] 04/12/2021 12:00:00 AM EDT eCW1 ([facility]) [place] [address] [facility] [address] 03/29/2021 12:00:00 AM EDT eCW1 ([facility]) Unknown [address] [facility] [address] 03/27/2021 12:00:00 AM EDT eCW1 ([facility]) Immunizations Vaccine Date Status Description Data Source(s) COVID-19 VACCINE Moderna 04/19/2021 12:00:00 AM EST completed [facility] Vaccine Series Complete: NOThis Data was Submitted to [facility] Via [employer]. Medications Medication Brand Name Start Date Product Form Dose Route Admi nistrative Instructions Pharmacy Instructions Status Indications Reaction Description Data Source(s) Glucose Monitor - UNK 04/11/2021 12:00:00 AM EDT active Glucose Monitor - eCW1 ([facility]) Alcohol Wipes 70 % UNK 04/11/2021 12:00:00 AM EDT active Alcohol Wipes 70 % eCW1 ([facility]) Test Strips - UNK 04/11/2021 12:00:00 AM EDT acti ve Test Strips - eCW1 ([facility]) Alcohol Wipes 70 % UNK 04/11/2021 12:00:00 AM EDT active Alcohol Wipes 70 % eCW1 ([facility]) Test Strips - UNK 04/11/2021 12:00:00 AM EDT acti ve Test Strips - eCW1 ([facility]) Test Strips - UNK 04/11/2021 12:00:00 AM EDT acti ve Test Strips - eCW1 ([facility]) Alcohol Wipes 70 % UNK 04/11/2021 12:00:00 AM EDT active Alcohol Wipes 70 % eCW1 ([facility]) Lancets - Lancets - 04/11/2021 12:00:00 AM EDT act lissy Lancets - eCW1 ([facility]) Test Strips - UNK 04/11/2021 12:00:00 AM EDT acti ve Test Strips - eCW1 ([facility]) Lancets - Lancets - 04/11/2021 12:00:00 AM EDT act lissy Lancets - eCW1 ([facility]) Test Strips - UNK 04/11/2021 12:00:00 AM EDT acti ve Test Strips - eCW1 ([facility]) Alcohol Wipes 70 % UNK 04/11/2021 12:00:00 AM EDT active Alcohol Wipes 70 % eCW1 ([facility]) Glucose Monitor - UNK 04/11/2021 12:00:00 AM EDT active Glucose Monitor - eCW1 ([facility]) Alcohol Wipes 70 % UNK 04/11/2021 12:00:00 AM EDT active Alcohol Wipes 70 % eCW1 ([facility]) Test Strips - UNK 04/11/2021 12:00:00 AM EDT acti ve Test Strips - eCW1 ([facility]) Lancets - Lancets - 04/11/2021 12:00:00 AM EDT act lissy Lancets - eCW1 ([facility]) Glucose Monitor - UNK 04/11/2021 12:00:00 AM EDT active Glucose Monitor - eCW1 ([facility]) Alcohol Wipes 70 % UNK 04/11/2021 12:00:00 AM EDT active Alcohol Wipes 70 % eCW1 ([facility]) Lancets - Lancets - 04/11/2021 12:00:00 AM EDT act lissy Lancets - eCW1 ([facility]) Glucose Monitor - UNK 04/11/2021 12:00:00 AM EDT active Glucose Monitor - eCW1 ([facility]) Lancets - Lancets - 04/11/2021 12:00:00 AM EDT act lissy Lancets - eCW1 ([facility]) Glucose Monitor - UNK 04/11/2021 12:00:00 AM EDT active Glucose Monitor - eCW1 ([facility]) Glucose Monitor - K 04/11/2021 12:00:00 AM EDT active Glucose Monitor - eCW1 ([facility]) Lancets - Lancets - 04/11/2021 12:00:00 AM EDT act lissy Lancets - eCW1 ([facility]) Insurance Providers Payer name Policy type / Coverage type Policy ID Covered republican ID Covered republican's relationship to donahue Policy Donahue Plan Information [employer] Health Maintenance Organization (HMO) [id number] Self MEDICAID [id number] SP [id number] [facility] COMMUNITY PLAN [facility] [id number] SP [id number] QING [id number] SP [id number] [facility] COMMUNITY PLAN [facility] [id number] SP [id number] [place] P[place] 302/307 [id number] SP [id number] SELF PAY ONLY UNAVAILABLE UNAV AILABLE [place]BS [place] PPO 302/307 [id number] SP [id number] [place] Medig[place] Part B [id number] Self [employer] BCBS B [id number] S VYS [id number] BCBS OF [place] 306/[id number] SP [id number] MEMIC SSV W/C [id number] SP [id number] COMMUNITY PLAN [facility] [id number] SP [id number] MEMIC [id number] SP [id number] [facility](MCAID) P [id number] S [id number] [facility] [id number] SP [id number] SELF PAY UNAVAILABLE UNAVAILA BLE [facility] [id number] SP [id number] MEDICAID [id number] SP [id number] [facility] [id number] Problems, Conditions, and Diagnoses Code Display Name Description Problem Type Effective Dates Data Source(s) O24.313 [id number] Pre-existing diabete s mellitus during in third trimester Problem 04/11/2021 12:00:00 AM EDT eCW1 ([facility]) Z34.80 care Supervision of other normal P [place] 03/23/2021 12:00:00 AM EDT eCW1 ([facility]) Surgeries/Procedures No Information Results ID Date Data Source [id number] 05/07/2021 12:33:41 PM [facility] Name Value Range Interpretation Code Description Data Silvana rce(s) Supporting Document(s) Progress Note [facility] WYRQTd6eZvAWDoYj45/GAZwiHMTvq8EaFRexWEc6VBpuOGLqM7NkQVZ3dA5zPTZ2FNgWSiHzRoQgDKP6 m [file] NjFjYTg+GP3mOIj+Gx8Ra2YpvlY5vbYfUHzsWcrgVq6XUYRQO5IBFb== ID Date Data Source [id number] 04/30/2021 05:10:56 PM [facility] Name Value Range Interpretation Code Description Data Silvana rce(s) Supporting Document(s) Progress Note [facility] HULQCh2iOuNJUoLo89/FGJfeZKHow3LlKResKIa5XWfhXKDzQ3GvGYC0nU1kKJC1QUsUHpFtTeFlUSRj lbm PrRmwMByGbYLLzLhgEOiSgLKwgXrwbxDLgBY3RxNK3AHFqR19dCPIyEGNmR9QbITP7KiM+Kd9UYOOwjR UoFE3URwtC2P8ge4pNFj0gxY/ZLiFkA0Fsbq3mATMXauFAB3KJTBTkZ8QmvMK5c9bSwe41aytAj9wria 2TJ32WVoMP4cyhhcs5R0C4C1t9k6/CLRf9tsRc/2// Zcai5q3Iu/+k1q/69x1g33+rf5mVeqU6tq1N+Vff/k1E359ro6XDxdQgz8cn4wJJhdE4J29ZzsJtfD5n xpNhf/7HsckLe5eFoHjo+d1x7okuZDqph2++Dante/ktYm7fSLJO2yHpsnwB+zr2yWsSn0G/66wnzhwV86 [file] x/Gz+Sv5R/wreath machine operator+c+ZDyZxfgohXl9VtmC2jG3IQ4KKyclHJWvNbykwUd1spaGgmVvqUshGbDZ+qK2jqpBf [file] EnZO5ZESKKH8MVYs== Procedure Social History Code Duration Value Status Description Data Source(s ) Smoking 05/09/2021 12:00:00 AM EST Never Smoker completed Never S moker eCW1 ([facility]) Smoking 05/09/2021 12:00:00 AM EST Never Smoker completed Never S moker eCW1 ([facility]) Smoking 04/27/2021 12:00:00 AM EST Never Smoker completed Never S moker eCW1 ([facility]) Smoking 04/20/2021 12:00:00 AM EST Never Smoker completed Never S moker eCW1 ([facility]) Smoking 04/20/2021 12:00:00 AM EST Never Smoker completed Never S moker eCW1 ([facility]) Smoking 04/19/2021 12:00:00 AM EST Never Smoker completed Never S moker eCW1 ([facility]) Smoking 03/27/2021 12:00:00 AM EDT Never Smoker completed Never S moker eCW1 ([facility]) Smoking 03/27/2021 12:00:00 AM EDT Never Smoker completed Never S moker eCW1 ([facility]) Vital Signs ID Date Data Source UNK Name Value Range Interpretation Code Description Data Source(s) Body weight 243 [lb_av] 243 [lb_av] eCW1 ([facility]) Body weight 110.22 kg 110.22 kg eCW1 ([facility]) Body height 67 [in_i] 67 [in_i] eCW1 ([facility]) Body mass index (BMI) [Ratio] 38.059 kg/m2 38.0 59 kg/m2 eCW1 ([facility]) Systolic blood pressure 104 mm[Hg] 104 mm[Hg] e 1 ([facility]) Diastolic blood pressure 68 mm[Hg] 68 mm[Hg] eCW1 ([facility]) Body weight 244.4 [lb_av] 244.4 [lb_av] eCW1 ([facility]) Body weight 110.86 kg 110.86 kg eCW1 ([facility]) Body height 67 [in_i] 67 [in_i] eCW1 ([facility]) Body mass index (BMI) [Ratio] 38.278 kg/m2 38.2 78 kg/m2 eCW1 ([facility]) Systolic blood pressure 128 mm[Hg] 128 mm[Hg] e CW1 ([facility]) Diastolic blood pressure 76 mm[Hg] 76 mm[Hg] eCW1 ([facility])
[2021-05-14] MEDS ORDERED: LR 1,000 ML IV ONE (05:50)
[2021-05-14] MEDS ORDERED: BICITRA 30ML SOLN UDC PO ONE (05:50)
[2021-05-14] MEDS ORDERED: LR 1,000 ML IV SCH (05:50)
[2021-05-14] MEDS ORDERED: ceFAZolin SOD 2 GM in IV 1 EA IV ONE (05:50)
[2021-05-14 06:25] LABS: HEMATOCRIT 35.8 % (36.0-47.0); HEMOGLOBIN 11.7 g/dl (12.0-15.5); MEAN CORPUSCULAR HEMOGLOBIN 27.9 pg (27.0-33.0); MEAN CORPUSCULAR HGB CONC 32.7 g/dl (32.0-36.5); MEAN CORPUSCULAR VOLUME 85.4 fl (80.0-96.0); PLATELET COUNT, AUTOMATED 310 10^3/uL (150-450); RED BLOOD COUNT 4.19 10^6/uL (4.00-5.40); WHITE BLOOD COUNT 8.4 10^3/uL (4.0-10.0)
[2021-05-14] MEDS ORDERED: METOCLOPRAMIDE INJ 10MG/2ML VIAL (J2765 PER 1) IV PRN (08:07)
[2021-05-14] MEDS ORDERED: NALOXONE INJ 0.4MG/1ML VIAL (J2310 PER 1MG) IV PRN ×2 (08:07)
[2021-05-14] MEDS ORDERED: NALBUPHINE HCL 10 MG/ML AMP (J2300) IV PRN ×2 (08:07→09:30)
[2021-05-14] MEDS ORDERED: ONDANSETRON 4MG/2ML VIAL IV PRN ×4 (08:07→09:30)
[2021-05-14] MEDS ORDERED: diphenhydrAMINE 50MG/ML VIAL (J1200) IV PRN (08:07)
[2021-05-14] MEDS ORDERED: MORPHINE PRES-FREE INJ 10 MG/10 ML VIAL (J2274) As Ordered ONE (08:21)
[2021-05-14] MEDS ORDERED: OXYTOCIN INJ 10 UNITS/ML VIAL (J2590) As Ordered ONE (08:21)
[2021-05-14] MEDS ORDERED: ONDANSETRON 4MG/2ML VIAL As Ordered ONE (08:45)
[2021-05-14] MEDS ORDERED: METOCLOPRAMIDE INJ 10MG/2ML VIAL (J2765 PER 1) As Ordered ONE (08:46)
[2021-05-14] MEDS ORDERED: KETOROLAC 60MG 2ML VIAL As Ordered ONE (08:57)
[2021-05-14] MEDS: PRENATAL VITAMINS CHEWABLE TABLET PO SCH (09:00)
[2021-05-14] MEDS: DOCUSATE SODIUM 100MG CAPSULE PO SCH ×2 (09:00→21:10)
[2021-05-14 09:04] LABS: CORD GAS ABE V -3.9; CORD GAS HCO3 V 21.4 MEQ/L; CORD GAS O2 SAT V 61.6 %; CORD GAS PCO2 V 40.1 mmHg; CORD GAS PH V 7.345 UNITS; CORD GAS PO2 V 24.4 mmHg; CORD GAS SBC V 20.3 MEQ/L; CORD GAS TCO2 V 22.6 MEQ/L
[2021-05-14 09:06] LABS: CORD GAS ABE A -1.9; CORD GAS HCO3 A 25.8 MEQ/L; CORD GAS O2 SAT A 58.4 %; CORD GAS PCO2 A 54.6 mmHg; CORD GAS PH A 7.292 UNITS; CORD GAS PO2 A 25.2 mmHg; CORD GAS SBC A 21.8 MEQ/L; CORD GAS TCO2 A 27.5 MEQ/L
--- NOTE | 2021-05-14 09:23 | ROOPDOC ---
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 POSTPROCEDURE DIAGNOSES: same PROCEDURE: Primary low transverse section with Ch[place]au bilateral tubal ligation. SURGEON: Dawson Armas DO FACRE[employer]A [employer]INT CONTROLLER: Arun Baxter CNM (Essential role in retraction, extraction, and closure of all tissue layers) ANESTHESIA: Spinal ESTIMATED BLOOD LOSS: 500 mL. IV FLUIDS: 1500 mL LR URINE OUTPUT: 100 mL COMPLICATIONS: None. FINDINGS: Normal uterus and bilateral fallopian tubes/ovaries. PREOPERATIVE ANTIBIOTICS: Ancef 2g IV x 1, DATA: Apgars 8 and 9. Birthweight 4080g, 9lbs . SPECIMENS: right and left fallopian tubal segments. PRIMARY INDICATION FOR : microcephaly/encephalocele, increased AC, pregest DM2 ([facility] rec: PLTCS) DESCRIPTION OF PROCEDURE: The patient was counseled on the risks, benefits, indications and alternatives of the procedure. Informed consent was obtained. She was taken to the operating room with IV running and placed on the operating table in the dorsal supine position with a leftward tilt. Regional anesthesia was found to be adequate. Sequential compression devices were placed on the lower extremities. A Welch catheter was placed under sterile conditions. She was prepared and draped in normal sterile fashion. A time out was performed per protocol. Regional anesthesia was again found to be adequate. A Pfannenstiel skin incision was made with the 10 blade. The 10 blade was used to dissect down to the level of the rectus sheath fascia. The rectus sheath pressure was incised midline and this was extended bilaterally with Hastings scissors , and manual stretch. The rectus muscle bellies were dissected off the rectus sheath fascia superiorly and inferiorly using both sharp and blunt dissection. The midline was identified. The peritoneum was identified and the cavity entered. The peritoneal opening was extended with manual stretch. The Mobius retractor was placed. The vesicouterine peritoneum was dissected with Metzenbaum scissors to create the bladder flap. A low transverse uterine incision was made with the 10 blade. This was extended with manual stretch. The amniotic sac was punctured, and clear fluid was noted. The baby delivered through the hysterotomy without difficulty. The cord was doubly clamped and cut, and the baby was handed off to awaiting care. data shown above. The placenta was removed manually. The intrauterine cavity was cleared of all clot and debris. The hysterotomy was closed with 0 Vicryl in running locked fashion. This was reinforced with a second imbricating layer using 0 Vicryl in running fashion. Excellent hemostasis of the hysterotomy was noted. The right and left fallopian tubes were followed out to the fimbriated end. A ligation was performed on each fallopian tube using the following technique (Corinne): The ampullary portion of each was grasped with a Venu and elevated. A peritoneal window was created with Bovie along the mesosalpinx. Plain gut suture was used to tie two locations of the fallopian tube at the ends of the created window. The approximate 2-3cm intervening segment of fallopian tube was excised with Metzenbaum scissors. Bovie cautery was used to obliterate the lumen of the fallopian tube on each cut end, and to ensure hemostasis. Excellent hemostasis was noted. The pelvis was irrigated and the fluid suctioned. The Mobius retractor was removed. The peritoneum was closed with 3-0 Vicryl running fashion. The rectus muscle bellies were reapproximated with interrupted stitches using 3-0 Vicryl. The rectus muscles bellies were hemostatic. The rectus sheath fascia was closed with 0 Vicryl running fashion. The subcutaneous layer was irrigated and the fluid suctioned. Small bleeding vessels were cauterized with Bovie. Excellent hemostasis was noted. The subcutaneous layer was reapproximated with 3-0 Vicryl running fashion. Skin was closed with 3-0 Monocryl in subcuticular fashion. An Optifoam bandage was placed over the closed incision. Sponge, needle and instrument counts were correct per protocol throughout the procedure. The patient tolerated the entire procedure very well. She was transferred to the PACU in stable condition. DO MUNA Price JONATHAN R. DO May 14, 2021 09:23
[2021-05-14] MEDS ORDERED: MEASLES,MUMPS,RUBELLA VACCINE INJ (MMR-II) (90707) SC SCH (09:25)
[2021-05-14] MEDS ORDERED: ACETAMINOPHEN 500 MG TAB PO PRN (09:25)
[2021-05-14] MEDS ORDERED: PERCOCET 5MG/325MG TAB PO PRN (09:25)
[2021-05-14] MEDS ORDERED: OXYTOCIN DRIP 30 UNITS in IV 1 EA IV SCH (09:25)
[2021-05-14] MEDS ORDERED: SIMETHICONE 80MG CHEW TAB PO PRN (09:25)
[2021-05-14] MEDS ORDERED: RHOGAM 300 MCG (1500 IU) INJ (J2790) IM SCH (09:25)
[2021-05-14] MEDS ORDERED: PERC5TAB12 PO (09:28)
[2021-05-14] MEDS ORDERED: fentaNYL 100 MCG/2 ML INJECTION (J3010) IV PRN (09:30)
[2021-05-14] MEDS ORDERED: oxyCODONE 5MG TAB PO PRN (09:30)
[2021-05-14] MEDS ORDERED: COLA100C5 PO (09:30)
[2021-05-14] MEDS ORDERED: HYDROMORPHONE HCL 0.5 MG/ 0.5 ML SYRINGE (J1170 PER 1) IV PRN (09:30)
[2021-05-14] MEDS ORDERED: MEPERIDINE INJ 25 MG/ML VIAL (J2175) IV PRN (09:30)
[2021-05-14] MEDS ORDERED: IBUP80TA PO (09:30)
[2021-05-14] MEDS ORDERED: OXYTOCIN 30 UNITS IN 0.9% NaCl 500ML IV BAG (J2590) As Ordered ONE (09:46)
[2021-05-14] MEDS: LR 1,000 ML IV SCH ×2 (09:48→12:11)
[2021-05-14] MEDS ORDERED: oxyCODONE 5MG TAB As Ordered ONE (10:12)
[2021-05-14] MEDS: KETOROLAC 30 MG/ML 1ML VIAL IV SCH ×2 (15:07→21:10)
[2021-05-15] MEDS: KETOROLAC 30 MG/ML 1ML VIAL IV SCH (03:00)
[2021-05-15 06:42] VITALS: BP 123/65
[2021-05-15] MEDS ORDERED: HumuLIN R (REGULAR) INSULIN (NovoLIN R) **100U/ML** PER UNIT SC SCH (07:30)
[2021-05-15] MEDS ORDERED: LEVEMIR (INSULIN DETEMIR) 1 UNITS/0.01ML SC SCH (09:00)
[2021-05-15 09:29] LABS: HEMATOCRIT 28.6 % (36.0-47.0); MEAN CORPUSCULAR HEMOGLOBIN 28.1 pg (27.0-33.0); MEAN CORPUSCULAR HGB CONC 32.5 g/dl (32.0-36.5); MEAN CORPUSCULAR VOLUME 86.4 fl (80.0-96.0); PLATELET COUNT, AUTOMATED 254 10^3/uL (150-450); RED BLOOD COUNT 3.31 10^6/uL (4.00-5.40); WHITE BLOOD COUNT 8.9 10^3/uL (4.0-10.0)
[2021-05-15 09:36] LABS: HEMOGLOBIN 9.3 g/dl (12.0-15.5)
[2021-05-15] MEDS: PRENATAL VITAMINS CHEWABLE TABLET PO SCH (09:44)
[2021-05-15] MEDS: DOCUSATE SODIUM 100MG CAPSULE PO SCH ×2 (09:44→21:07)
[2021-05-15] MEDS ORDERED: GLUCOSE 4GM CHEW TABLET PO PRN (10:05)
[2021-05-15] MEDS ORDERED: GLUCAGON INJ 1MG VIAL SC PRN (10:05)
[2021-05-15] MEDS ORDERED: DEXTROSE 50% 50 ML SYRINGE IV PRN (10:05)
[2021-05-15] MEDS: IBUPROFEN 800 MG TAB PO SCH ×2 (11:11→18:54)
--- NOTE | 2021-05-15 11:21 | IPNPDOC ---
Progress Note Date of Service: May 15, 2021 Progress Note SUBJECT: Patient is a 35-year-old G 5 P 4014 status post uncomplicated primary low transverse section at 37-1/7 weeks' doing well day #1. She has been ambulating, voiding spontaneously without issue and tolerating regular diet. Reports lochia is like a normal period. Patient is ambulating well. Reports some cramping, well controlled with medication. Voiding and ambulating without difficulty. OBJECTIVE: VITAL SIGNS: Within normal limits, afebrile. Alert and oriented times three. Breath sounds clear to auscultation. Heart rate: Regular rate and rhythm, no murmurs, rubs or gallops. Abdomen: Fundus firm at U-2. Soft, appropriately tender to palpation. Bandage in place clean dry and intact Minimal to moderate lochia. ASSESSMENT: Patient is a 35-year-old G 5 P 4014 status post uncomplicated primary low transverse section. Doing well on day 1. Vitals within normal limits, afebrile, hemodynamically stable with no evidence of infection. PLAN: 1. Continue pain regiment 2. Insulin sliding scale 3. Regular diet 4. Encourage ambulation 5. DC home tomorrow VS, I&O, 24H, Fishbone Vital Signs/I&O Vital Signs Date Time Temp Pulse Resp B/P (MAP) Pulse Ox O2 Delivery O2 Flow Rate FiO2 05/15/21 06:42 98.8 78 16 123/65 (84) 100 Room Air I&O- Last 24 Hours up to 6 AM 05/15/21 06:00 Intake Total 2675 ml Output Total 1275 ml Balance 1400 ml Laboratory Data 24H LABS Laboratory Tests 2 05/15/21 08:53: Nucleated Red Blood Cells % (auto) 0.0 05/15/21 09:29: Bedside Glucose (Misc Panel) 153H CBC/BMP Laboratory Tests 05/15/21 08:53 RACHELLE MONTANEZ MD May 15, 2021 11:21
[2021-05-15] MEDS: HumaLOG INSULIN (NovoLOG) PER UNIT SC SCH ×2 (11:49→17:28)
[2021-05-15 18:00] VITALS: BP 132/68
[2021-05-15] MEDS ORDERED: HumaLOG INSULIN (NovoLOG) PER UNIT SC SCH (21:00)
[2021-05-15 22:00] VITALS: BP 120/50
[2021-05-15] MEDS: PERCOCET 5MG/325MG TAB PO PRN (23:11)
[2021-05-16 02:00] VITALS: BP 119/61
[2021-05-16] MEDS: IBUPROFEN 800 MG TAB PO SCH ×2 (03:05→11:08)
[2021-05-16 06:00] VITALS: BP 113/56
[2021-05-16] MEDS: PERCOCET 5MG/325MG TAB PO PRN (06:30)
[2021-05-16] MEDS: HumaLOG INSULIN (NovoLOG) PER UNIT SC SCH ×3 (07:30→17:30)
[2021-05-16] MEDS: PRENATAL VITAMINS CHEWABLE TABLET PO SCH (07:55)
[2021-05-16] MEDS: DOCUSATE SODIUM 100MG CAPSULE PO SCH (07:55)
--- NOTE | 2021-05-16 13:19 | IPNPDOC ---
Progress Note Date of Service: May 16, 2021 Day#: 2 Progress Note SUBJECT: Britney is a 35-year-old female who is day 2 postoperative after having a primary section and a bilateral salpingectomy. She reports she is ambulating without dizziness now. Reports some dizziness yesterday. She is concerned because she is having a hard time moving and getting out of bed without assistance. Once she is up she can move well but getting out of bed is difficult. She reports she is voiding without difficulty and able to keep a r egular diet down with nausea or vomiting. OBJECTIVE: VITAL SIGNS: see below. Alert and oriented times three. In bed on her side. Very difficult for patient to move in bed. Respiratory rate is regular without use of accessory muscles. Abdomen: Fundus firm. Dressing is intact. Minimal lochia. ASSESSMENT: Day 2 postoperative. PLAN: 1. Continue supportive nursing care. 2. May anticipate discharge to home if patient is able to move in bed better and ambulate better. 3. Patient to shower today. 4. Patient requesting cough drops as she feels like she has something stuck in her throat. Encouraged use of incentive spirometer. VS, I&O, 24H, Fishbone Vital Signs/I&O Vital Signs Date Time Temp Pulse Resp B/P (MAP) Pulse Ox O2 Delivery O2 Flow Rate FiO2 05/16/21 12:41 19 Room Air 05/16/21 06:00 97.6 90 113/56 (75) 96 Laboratory Data 24H LABS Laboratory Tests 2 05/15/21 17:15: Bedside Glucose (Misc Panel) 83 05/15/21 21:08: Bedside Glucose (Misc Panel) 187H 05/16/21 06:32: Bedside Glucose (Misc Panel) 64L 05/16/21 11:53: Bedside Glucose (Misc Panel) 71 LAURA CALZADA CNM May 16, 2021 13:19
[2021-05-16] MEDS: CEPACOL LOZENGE PO PRN ×2 (14:19→16:25)
--- NOTE | 2021-05-16 17:22 | DS.PDOC ---
Discharge Summary General Date of Admission May 14, 2021 at 05:12 Date of Discharge 05/16/21 Attending Physician: CECILIA HOU DO Discharge Summary PROCEDURES PERFORMED DURING STAY: [None]. ADMITTING DIAGNOSES: 1. . DISCHARGE DIAGNOSES: 1. . COMPLICATIONS/CHIEF COMPLAINT: C/S. HISTORY OF PRESENT ILLNESS: . HOSPITAL COURSE: . DISCHARGE MEDICATIONS: Please see below. ALLERGIES: Please see below. PHYSICAL EXAMINATION ON DISCHARGE: VITAL SIGNS: Please see below. GENERAL: HEENT: NECK: CARDIOVASCULAR EXAMINATION: RESPIRATORY EXAMINATION: ABDOMINAL EXAMINATION: EXTREMITIES: SKIN: NEUROLOGICAL EXAMINATION: PSYCHIATRIC EXAMINATION: LABORATORY DATA: Please see below. IMAGING: PROGNOSIS: ACTIVITY: [As tolerated]. DIET: DISCHARGE PLAN: DISPOSITION: . DISCHARGE INSTRUCTIONS: 1. . ITEMS TO FOLLOWUP ON ON OUTPATIENT: 1. . DISCHARGE CONDITION: [Stable]. TIME SPENT ON DISCHARGE: minutes. Vital Signs/I&Os Vital Signs Date Time Temp Pulse Resp B/P (MAP) Pulse Ox O2 Delivery O2 Flow Rate FiO2 05/16/21 13:15 16 05/16/21 12:41 Room Air 05/16/21 06:00 97.6 90 113/56 (75) 96 Laboratory Data Labs 24H Laboratory Tests 2 05/15/21 21:08: Bedside Glucose (Misc Panel) 187H 05/16/21 06:32: Bedside Glucose (Misc Panel) 64L 05/16/21 11:53: Bedside Glucose (Misc Panel) 71 FSBS Laboratory Tests Test 05/15/21 21:08 05/16/21 06:32 05/16/21 11:53 Range/Units Bedside Glucose (Misc Panel) 187 64 71 70-105 MG/DL Discharge Medications Scheduled Cholecalciferol (Vitamin D3) (D3-2000) 50 Mcg Capsule, 50 MCG PO DAILY, (Reported) Docusate Sodium (Colace) 100 Mg Capsule, 100 MG PO BID Ibuprofen (Ibuprofen) 800 Mg Tablet, 800 MG PO Q8H No122/Iron/Folic Acid ( Multi Tablet) 1 Each Tablet, 1 TAB PO DAILY, (Reported) Scheduled PRN Oxycodone HCl/Acetaminophen (Percocet 5-325 mg Tablet) 1 Each Tablet, 1 TAB PO QIDP PRN for PAIN LEVEL 5-10 Allergies Coded Allergies: ciprofloxacin (Verified Allergy, Severe, rash/swelling, 10/31/18) LAURA CALZADA CNM May 16, 2021 17:22
[2021-05-16 17:43] VITALS: BP 137/81
== END 2021-05-16 18:27 | disposition home or self-care (01) | DRG 540 ==
LOC: M LDI 05:12 → M OBS 11:44
PROVIDERS: ADMIT Obstetrics & Gynecology; ATTEND Obstetrics & Gynecology
PROC: 0UB70ZZ Excision of Bilateral Fallopian Tubes, Open Approach (ICD-10-PCS; 2021-05-14)
PROC: 10D00Z1 Extraction of Products of Conception, Low, Open Approach (ICD-10-PCS; principal; 2021-05-14 07:30)
DX: O36.8930 Maternal care for other specified fetal problems, third trimester, not applicable or unspecified (principal); O24.02 Pre-existing type 1 diabetes mellitus, in childbirth; O40.3XX0 Polyhydramnios, third trimester, not applicable or unspecified; Z37.0 Single live birth; Z3A.37 37 weeks gestation of pregnancy; E10.9 Type 1 diabetes mellitus without complications; Z88.8 Allergy status to other drugs, medicaments and biological substances; Z91.410 Personal history of adult physical and sexual abuse

== ENCOUNTER → 2023-07-03 | Outpatient (REF) | payer OTHER ==
[~2023-07-03] MED LIST changes: +IBUP80TA PO; +PERC5TAB12 PO
[2023-07-03 17:15] LABS: BASO # 0.1 10^3/uL (0.0-0.2); BASO % 0.8 % (0.0-1.0); EOS # 0.3 10^3/uL (0.0-0.5); EOS % 4.6 % (0.0-3.0); HEMOGLOBIN 13.5 g/dl (12.0-15.5); LYMPH # 1.8 10^3/uL (1.5-5.0); MEAN CORPUSCULAR HEMOGLOBIN 28.3 pg (27.0-33.0); MEAN CORPUSCULAR HGB CONC 32.9 g/dl (32.0-36.5); MONO # 0.4 10^3/uL (0.0-0.8); NEUTROPHILS # 3.6 10^3/uL (1.5-8.5); NEUTROPHILS % 58.3 % (36.0-66.0); PLATELET COUNT, AUTOMATED 310 10^3/uL (150-450); RED BLOOD COUNT 4.77 10^6/uL (4.00-5.40); WHITE BLOOD COUNT 6.1 10^3/uL (4.0-10.0)
[2023-07-03 17:29] LABS: ALBUMIN 3.7 G/DL (3.2-5.2); ALKALINE PHOSPHATASE 72 U/L (46-116); ALT/SGPT 19 U/L (7.0-40); AST/SGOT 13 U/L (<34); BILIRUBIN,TOTAL 0.4 MG/DL (0.3-1.2); BLOOD UREA NITROGEN 9 MG/DL (9-23); CALCIUM LEVEL 9.2 MG/DL (8.5-10.1); CARBON DIOXIDE LEVEL 28 MMOL/L (20-31); CHLORIDE LEVEL 103 MMOL/L (98-107); CHOLESTEROL LEVEL 201 MG/DL (<200); CHOLESTEROL RISK RATIO 3.21 (<5); CREATININE FOR GFR 0.55 MG/DL (0.55-1.30); GLOMERULAR FILTRATION RATE > 60.0 (>60); GLUCOSE, FASTING 278 MG/DL (60-100); HDL CHOLESTEROL 62.5 MG/DL (>40); LDL CHOLESTEROL 114.7 MG/DL (<100); MAGNESIUM LEVEL 1.6 MG/DL (1.8-2.4); NON-HDL-C 138.5 MG/DL; POTASSIUM SERUM 4.2 MMOL/L (3.5-5.1); SODIUM LEVEL 136 MMOL/L (136-145); THYROID STIMULATING HORMONE 1.033 uIU/ML (0.55-4.78); TOTAL PROTEIN 7.2 G/DL (5.7-8.2); TRIGLYCERIDES LEVEL 119 MG/DL (<150)
== END ==
LOC: M LAB REF 16:14
PROVIDERS: ATTEND Physician Assistant
DX: E11.9 Type 2 diabetes mellitus without complications (principal); E55.9 Vitamin D deficiency, unspecified; R53.83 Other fatigue

== ENCOUNTER → 2023-12-02 | Outpatient (REF) | payer OTHER ==
[2023-12-02 18:19] LABS: CREATININE, URINE 75.3 MG/DL; MAU/CREAT RATIO 6.6 MCG/MG (0.0-30.0)
== END ==
LOC: M LAB REF 16:17
PROVIDERS: ATTEND Physician Assistant
DX: E11.9 Type 2 diabetes mellitus without complications (principal)

== ENCOUNTER 2024-03-09 08:29 | Emergency (ER) | payer OTHER, SELFPAY ==
[~2024-03-09] VITALS: Ht 170.2 cm; Wt 101.5 kg
[2024-03-09] MEDS ORDERED: SEMA0.257 SC (08:42)
[2024-03-09] MEDS ORDERED: METF-838 PO (08:42)
[2024-03-09 09:14] LABS: BASO # 0.1 10^3/uL (0.0-0.2); BASO % 0.8 % (0.0-1.0); EOS # 0.4 10^3/uL (0.0-0.5); EOS % 5.3 % (0.0-3.0); HEMATOCRIT 41.8 % (36.0-47.0); HEMOGLOBIN 13.6 g/dl (12.0-15.5); LYMPH # 2.4 10^3/uL (1.5-5.0); LYMPH % 33.1 % (24.0-44.0); MEAN CORPUSCULAR HEMOGLOBIN 28.5 pg (27.0-33.0); MEAN CORPUSCULAR HGB CONC 32.5 g/dl (32.0-36.5); MEAN CORPUSCULAR VOLUME 87.6 fl (80.0-96.0); MONO # 0.6 10^3/uL (0.0-0.8); MONO % 7.9 % (2.0-8.0); NEUTROPHILS # 3.9 10^3/uL (1.5-8.5); NEUTROPHILS % 52.4 % (36.0-66.0); PLATELET COUNT, AUTOMATED 367 10^3/uL (150-450); RED BLOOD COUNT 4.77 10^6/uL (4.00-5.40); WHITE BLOOD COUNT 7.4 10^3/uL (4.0-10.0)
[2024-03-09 09:37] LABS: CPK CREATINE PHOSPHOKINASE 215 U/L (34-145)
[2024-03-09 09:48] LABS: LIPASE 61 U/L (12-53)
[2024-03-09 09:50] LABS: ALBUMIN 4.1 G/DL (3.2-5.2); ALKALINE PHOSPHATASE 59 U/L (46-116); ALT/SGPT 24 U/L (7.0-40); AST/SGOT 13 U/L (<34); BILIRUBIN,DIRECT 0.1 MG/DL (<0.4); BILIRUBIN,TOTAL 0.4 MG/DL (0.3-1.2); BLOOD UREA NITROGEN 9 MG/DL (9-23); CALCIUM LEVEL 9.6 MG/DL (8.5-10.1); CARBON DIOXIDE LEVEL 23 MMOL/L (20-31); CHLORIDE LEVEL 107 MMOL/L (98-107); CK-MB VALUE MASS < 1.0 NG/ML (<3.6); GLOMERULAR FILTRATION RATE > 60.0 (>60); GLUCOSE, FASTING 203 MG/DL (60-100); HCG, SERUM QUANTITATIVE < 2.6 MIU/ML (<4.2); MB/CK RELATIVE INDEX 0.46 (< OR =4); POTASSIUM SERUM 4.6 MMOL/L (3.5-5.1); SODIUM LEVEL 138 MMOL/L (136-145); TOTAL PROTEIN 7.9 G/DL (5.7-8.2)
[2024-03-09] MEDS: LORazepam 2 MG/ML 1ML VIAL IV STA (09:57)
[2024-03-09] MEDS: METOCLOPRAMIDE INJ 10MG/2ML VIAL IV ONE (10:27)
[2024-03-09] MEDS: KETOROLAC 30 MG/ML 1ML VIAL IV ONE (10:30)
[2024-03-09] MEDS ORDERED: ISOVUE-370 76% 100ML VIAL As Ordered ONE (10:30)
[2024-03-09 11:02] LABS: FREE T4 1.17 NG/DL (0.89-1.76); THYROID STIMULATING HORMONE 0.698 uIU/ML (0.55-4.78)
[2024-03-09] MEDS ORDERED: OMEP40CA5 PO (11:14)
[2024-03-09] MEDS ORDERED: HOME MED LIST COMPLETE! XX SCH (11:15)
[2024-03-09] MEDS: methocarbamoL 500 MG TAB PO ONE (12:13)
[2024-03-09 12:28] VITALS: BP 125/70; TEMP 98; O2SAT 100
[2024-03-09] MEDS ORDERED: METH-1164 PO (12:54)
== END 2024-03-09 13:12 | disposition home or self-care (01) ==
LOC: M ED 08:29
DX: R25.2 Cramp and spasm (principal); E11.9 Type 2 diabetes mellitus without complications; R51.9 Headache, unspecified; Z88.2 Allergy status to sulfonamides; Z79.4 Long term (current) use of insulin; Z79.899 Other long term (current) drug therapy
CPT/HCPCS: 71045; 74177; 80048; 80076; 82550; 82553; 83690; 84439; 84443; 84484; 84702; 85025; 93005; 96374; 96375; 99284; J1885; J2060; J2765; Q9967